=== PATIENT | female | born 1970 | race Caucasian/White ===

== ENCOUNTER 2020-12-17 17:51 | Emergency (ER) | payer BC ==
[~2020-12-17] VITALS: Ht 172.7 cm; Wt 117.9 kg
[2020-12-17 18:21] VITALS: BP 187/113
[2020-12-17] MEDS ORDERED: AMOXICILLIN 50500 MG PO (18:26)
[2020-12-17] MEDS ORDERED: HYDROCODON-ACE1 EA11 PO (18:27)
[2020-12-17] MEDS ORDERED: PREDNISONE 20 M20 MG PO (19:30)
[2020-12-17] MEDS ORDERED: CORICIDIN COLD1 EACH PO (19:30)
[2020-12-17] MEDS ORDERED: TESSALON PERLE100 MG PO (19:30)
== END 2020-12-17 20:01 | disposition home or self-care (01) ==
LOC: M.ERS 17:51
DX: J06.9 Acute upper respiratory infection, unspecified (principal); Z20.822 Contact with and (suspected) exposure to COVID-19; F17.210 Nicotine dependence, cigarettes, uncomplicated; I11.0 Hypertensive heart disease with heart failure; I50.9 Heart failure, unspecified